=== PATIENT | male | born 1985 | race Caucasian/White ===

== ENCOUNTER 2023-01-08 18:48 | Emergency (ER) | payer OTHER, SELFPAY ==
[2023-01-08 18:56] VITALS: BP 144/96; PULSE 110; RESP 20; TEMP 36.9; O2SAT 98; BMI 29.1
[2023-01-08 19:00] VITALS: O2SAT 97
[2023-01-08 19:10] VITALS: PULSE 113
--- NOTE | 2023-01-08 19:26 | ED.CHESTPAI1 ---
HPI - Chest Pain General Chief Complaint: Chest Pain Stated Complaint: CHEST PAIN Time Seen by Provider: 01/08/23 19:22 Source: patient Mode of arrival: walk-in Limitations: no limitations History of Present Illness HPI narrative: patient states he was resting and developed a tightness of his left chest. Lasted about 10-15 minutes and his left arm felt tingly. No associated dyspnea, diaphoresis or nausea. No abdominal pain. Does have history of GERD but this pain was different than his GERD pain. Denies similar chest pain in the past. Family history of heart disease in his mother Related Data Allergies Allergy/AdvReac Type Severity Reaction Status Date / Time No Known Drug Allergies Allergy Verified 01/08/23 18:55 Review of Systems ROS Status of ROS 10 or more systems reviewed and unremarkable except as noted in history and below [facility] Social History Smoking status: Never smoker Exam Constitutional Vital Signs, click to edit/add: Last Vital Signs Temp 98.5 F 01/08/23 18:56 Pulse 92 H 01/08/23 20:29 Resp 18 01/08/23 20:29 BP 119/89 01/08/23 20:29 Pulse Ox 95 01/08/23 20:29 O2 Del Method Room Air 01/08/23 20:29 Common normals: no apparent distress, average body habitus, oriented x3, no limitations, healthy appearing, alert and well nourished Eye Common normals: PERRL, conjunctivae normal and no scleral icterus Respiratory Common normals: normal respiratory effort, no retractions, no use of accessory muscles and clear to auscultation bilaterally Cardio Common normals: regular rate, regular rhythm, S1 normal heart sound and S2 normal heart sound GI Common normals: Normal to inspection, nondistended, normoactive bowel sounds present, soft to palpation and non-tender Extremity Common normals: normal to inspection and full ROM Neuro Common normals: oriented x3, CN's II-XII intact bilaterally, moves all extremities and no focal motor deficits Psych Appearance: grossly normal Course Vital Signs Vital signs: Vital Signs Temperature 98.5 F 01/08/23 18:56 Pulse Rate 110 H 01/08/23 18:56 Respiratory Rate 20 01/08/23 18:56 Blood Pressure 144/96 H 01/08/23 18:56 Pulse Oximetry 98 11/18/23 18:56 Oxygen Delivery Method Room Air 01/08/23 18:56 Temperature 98.5 F 01/08/23 18:56 Pulse Rate 92 H 01/08/23 20:29 Respiratory Rate 18 01/08/23 20:29 Blood Pressure 119/89 01/08/23 20:29 Pulse Oximetry 95 01/08/23 20:29 Oxygen Delivery Method Room Air 01/08/23 20:29 MDM - Chest Pain MDM Narrative Medical decision making narrative: patient presented with 10 minutes of chest pain and tingling of left arm. Heart score of 1. Serial troponin neg x 2. Discussed findings with patient and he is advised to follow up with his family doctor for recheck Lab Data Labs: Lab Results 01/08/23 01/08/23 Range/Units 19:00 21:03 WBC 7.5 (4.0-11.0) 10^3/uL RBC 5.30 (4.70-6.10) 10^6/uL Hgb 15.3 (14.0-18.0) g/dL Hct 45.7 (42.0-54.0) % MCV 86.2 (80.0-94.0) fL MCH 28.9 (25.9-34.0) pg MCHC 33.5 (29.9-35.2) g/dL RDW 11.9 (11.0-15.0) % Plt Count 228 (150-450) 10^3/uL MPV 11.8 (9.5-13.5) fL Neut % (Auto) 47.9 (43.0-75.0) % Lymph % (Auto) 36.8 (20.5-60.0) % Waldo % (Auto) 8.3 (1.7-12.0) % Eos % (Auto) 6.0 (0.9-7.0) % Baso % (Auto) 0.7 (0.2-2.0) % Neut # (Auto) 3.6 (1.4-6.5) 10^3/uL Lymph # (Auto) 2.7 (1.2-3.8) 10^3/uL Waldo # (Auto) 0.6 (0.3-0.8) 10^3/uL Eos # (Auto) 0.5 (0.0-0.7) 10^3/uL Baso # (Auto) 0.1 (0.0-0.1) 10^3/uL Abs Immat Gran (auto) 0.02 (0.00-0.03) 10^3/uL Imm/Tot Granulo (auto) 0.3 (0.0-0.5) % D-Dimer 0.28 (<=0.59) mg/L FEU Sodium 141 (136-145) mmol/L Potassium 3.5 (3.5-5.1) mmol/L Chloride 102 (98-107) mmol/L Carbon Dioxide 28.6 (21.0-32.0) mmol/L Anion Gap 13.9 BUN 13.0 (7.0-18.0) mg/dL Creatinine 1.15 (0.70-1.30) mg/dL Est GFR ( Amer) >60 (>=60) Est GFR (Non-Af Amer) >60 (>=60) BUN/Creatinine Ratio 11.3 Glucose 111 H (74-106) mg/dL Calcium 9.2 (8.5-10.1) mg/dL Total Bilirubin 0.3 (0.2-1.0) mg/dL AST 23 (15-37) U/L ALT 65 H (16-63) U/L Alkaline Phosphatase 96 (46-116) U/L Troponin I High Sens <4.0 L <4.0 L (4.0-76.1) pg/mL Total Protein 7.9 (6.4-8.2) g/dL Albumin 4.2 (3.4-5.0) g/dL Globulin 3.7 g/dL Albumin/Globulin Ratio 1.1 Lipase 41.0 (16.0-77.0) U/L Discharge Plan Discharge Chief Complaint: Chest Pain Clinical Impression: Chest pain Patient Disposition: Home, Self-Care Instructions: Chest Pain (ED) Additional Instructions: follow up with your family doctor next week. Return if pain recurs Stand Alone Forms: Portal Instructions Referrals: Physician,Non-Staff, MD [Primary Care Provider] - 1 week
--- NOTE | 2023-01-08 19:28 | XR_ITS ---
[address] [address] Patient Name: KAYLA VARGAS MRN: [id number] date: 1985 Sex: M Assigned Patient Location: ER Current Patient Location: ED.MAIN Accession/Order Number: [id number] Exam Date: 01/08/2023 19:45 Report Date: 01/08/2023 20:16 At the request of: JERED GOOD Procedure: XR chest 2V EXAMINATION: XR chest 2V HISTORY: Left-sided chest pain COMPARISON: None. TECHNIQUE: PA and lateral chest x-rays FINDINGS: The lung parenchyma is free of consolidation or infiltrate. No pneumothorax or pleural effusion. The cardiac, mediastinal and hilar contours are normal. The visualized osseous structures exhibit no gross abnormality. XR/XR chest 2V IMPRESSION: No acute cardiopulmonary abnormality. Electronically authenticated by: ED GAMBOA Date: 01/08/2023 20:16
--- NOTE | 2023-01-08 19:28 | ECG_ITS ---
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
--- NOTE | 2023-01-08 19:34 | PC.NURSE ---
Apical strong and regular without murmurs or rubs. Denies pain at present.
[2023-01-08 19:35] LABS: Basophils Absolute Auto 0.1 10^3/uL (0.0-0.1); Basophils Percent Auto 0.7 % (0.2-2.0); Eosinophils Absolute Auto 0.5 10^3/uL (0.0-0.7); Hematocrit 45.7 % (42.0-54.0); Hemoglobin 15.3 g/dL (14.0-18.0); Immature Granulocytes Abs Auto 0.02 10^3/uL (0.00-0.03); Immature Granulocytes Pct Auto 0.3 % (0.0-0.5); Lymphocytes Absolute Auto 2.7 10^3/uL (1.2-3.8); Lymphocytes Percent Auto 36.8 % (20.5-60.0); Mean Corpuscular HGB Conc 33.5 g/dL (29.9-35.2); Mean Corpuscular Hemoglobin 28.9 pg (25.9-34.0); Mean Corpuscular Volume 86.2 fL (80.0-94.0); Mean Platelet Volume 11.8 fL (9.5-13.5); Monocytes Absolute Auto 0.6 10^3/uL (0.3-0.8); Monocytes Percent Auto 8.3 % (1.7-12.0); Neutrophils Absolute Auto 3.6 10^3/uL (1.4-6.5); Neutrophils Percent Auto 47.9 % (43.0-75.0); Platelet Count 228 10^3/uL (150-450); Red Cell Distribution Width 11.9 % (11.0-15.0); White Blood Count 7.5 10^3/uL (4.0-11.0)
[2023-01-08 19:57] LABS: D Dimer 0.28 mg/L FEU (<=0.59)
[2023-01-08 20:03] LABS: Alanine Aminotransferase 65 U/L (16-63); Albumin Globulin Ratio 1.1; Albumin Level 4.2 g/dL (3.4-5.0); Alkaline Phosphatase 96 U/L (46-116); Anion Gap 13.9; Aspartate Amino Transferase 23 U/L (15-37); BUN Creatinine Ratio 11.3; Bilirubin Total 0.3 mg/dL (0.2-1.0); Calcium 9.2 mg/dL (8.5-10.1); Carbon Dioxide 28.6 mmol/L (21.0-32.0); Chloride 102 mmol/L (98-107); Estimated GFR (African America >60 (>=60); Estimated GFR (Non-African Ame >60 (>=60); Globulin 3.7 g/dL; Glucose 111 mg/dL (74-106); Potassium 3.5 mmol/L (3.5-5.1); Sodium 141 mmol/L (136-145); Total Protein 7.9 g/dL (6.4-8.2); Troponin I High Sensitivity <4.0 pg/mL (4.0-76.1)
[2023-01-08 20:29] VITALS: BP 119/89; PULSE 92; RESP 18; O2SAT 95
[2023-01-08 22:40] LABS: Troponin I High Sensitivity <4.0 pg/mL (4.0-76.1)
[2023-01-08 23:01] VITALS: BP 130/82; PULSE 97; RESP 22; TEMP 36.8; O2SAT 95
== END 2023-01-08 23:03 | disposition home or self-care (01) ==
PROVIDERS: Emergency Provider Internal Medicine
DX: R07.9 Chest pain, unspecified (principal); K21.9 Gastro-esophageal reflux disease without esophagitis
CPT/HCPCS: 36415; 71046; 80053; 83690; 84484; 85025; 85378; 93005; 99285

== ENCOUNTER 2023-04-21 19:58 | Emergency (ER) | payer OTHER, SELFPAY ==
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
--- NOTE | 2023-04-21 21:49 | PC.NURSE ---
[employer] T[employer] still at bedside. [employer] called
== END 2023-04-21 22:53 | disposition expired ==
PROVIDERS: Emergency Provider Emergency Medicine
DX: S01.83XA Puncture wound without foreign body of other part of head, initial encounter (principal); I46.8 Cardiac arrest due to other underlying condition
CPT/HCPCS: 92950; 99291